=== PATIENT | male | born 1940 | race Caucasian/White ===

== ENCOUNTER 2016-11-28 23:04 | Emergency (ER) | payer OTHER, BC ==
[~2016-11-28] VITALS: Ht 188 cm; Wt 99.5 kg
[~2016-11-28 23:04] MED LIST: VIAGRA 100 MG TABLET
[2016-11-28 23:44] LABS: HEMATOCRIT 42.9 % (38.0-50.0); MCH 30.8 PG (29.0-34.0); MCHC 33.6 G/DL (30.0-36.0); MCV 91.7 FL (86-99); MEAN PLAT.VOLUME 10.4 uM^3 (9.0-12.4); PLATELET COUNT 238 K/uL (156-360); RBC DIS.WIDTH-CV 13.2 % (11.8-14.6); RBC DIS.WIDTH-SD 44.9 % (39-53); RED BLOOD COUNT 4.68 M/uL (4.00-5.50); WHITE BLOOD COUNT 10.3 K/uL (4.1-10.2)
[2016-11-28 23:57] LABS: CHLORIDE 108 mEq/L (99-109); POTASSIUM 4.4 mEq/L (3.7-5.4); SODIUM 144 mEq/L (136-147)
[2016-11-28 23:59] LABS: GLUCOSE 135 mg/dL (70-99)
[2016-11-29] LABS: ANION GAP 12 MEQ/L (2-14)
[2016-11-29 00:01] LABS: TOTAL BILIRUBIN 0.6 mg/dL (0.0-1.0)
[2016-11-29 00:03] LABS: ALKALINE PHOSPHATASE 71 IU/L (3-129); GFR ESTIMATE (CALCULATED) 53 mL/min/
[2016-11-29 00:04] LABS: UREA NITROGEN (BUN) 27 mg/dL (9-23)
[2016-11-29 00:05] LABS: DIRECT BILIRUBIN 0.2 mg/dL (0.0-0.3)
[2016-11-29 00:06] LABS: LIPASE 15 U/L (1.0-51.0)
[2016-11-29 00:19] LABS: ADD MIUA? YES; BILIRUBIN NEGATIVE; BLOOD SMALL; COLOR YELLOW ((YELLOW)); GLUCOSE (STRIP) NEGATIVE; KETONES 20; LEUKOCYTES NEGATIVE; NITRITE NEGATIVE; PROTEIN (STRIP) 30; UROBILINOGEN 0.2 MG/DL (0.2-1.0)
[2016-11-29 00:38] LABS: BACTERIA RARE /HPF; EPITHELIAL CELLS RARE /HPF; MUCUS TRACE /LPF; RED BLOOD CELLS 30-40 /HPF (0-5); UCUL ADDED? NO; WHITE BLOOD CELLS 0-5 /HPF (0-5)
[2016-11-29] MEDS ORDERED: NORCO 5/3251 TABLET PO (01:57)
[2016-11-29] MEDS ORDERED: FLOMAX0.4 MG PO (01:57)
[2016-11-29] MEDS ORDERED: ZOFRAN4 MG PO (01:57)
[2016-11-29 02:51] VITALS: BP 146/75
== END 2016-11-29 02:53 | disposition home or self-care (01) ==
LOC: EME 23:04
DX: N13.2 Hydronephrosis with renal and ureteral calculous obstruction (principal); N28.9 Disorder of kidney and ureter, unspecified; Z87.891 Personal history of nicotine dependence
CPT/HCPCS: 74176; 80048; 80076; 81003; 83605; 83690; 85027; 99281; 99284; J7030

== ENCOUNTER → 2016-11-30 | Outpatient (CLI) | payer MEDICARE, BC ==
[~2016-11-30] MED LIST changes: +FLOMAX0.4 MG PO; +NORCO 5/3251 TABLET PO; +ZOFRAN4 MG PO
== END | disposition home or self-care (01) ==
LOC: CDC 09:53
DX: Z01.810 Encounter for preprocedural cardiovascular examination (principal); I45.4 Nonspecific intraventricular block; I45.81 Long QT syndrome
CPT/HCPCS: 93000